=== PATIENT | female | born 1980 | race Two or more races ===

== ENCOUNTER 2021-04-08 10:36 | Inpatient (IN) | payer OTHER ==
[~2021-04-08] VITALS: Ht 160 cm; Wt 53.1 kg
[2021-04-08] MEDS ORDERED: GABAPENTIN100 M2 PO (11:25)
[2021-04-08] MEDS ORDERED: MEGESTROL ACETA40 MG PO (11:25)
[2021-04-08] MEDS ORDERED: CYMBALTA30 MG PO (12:32)
[2021-04-11] MEDS ORDERED: TRAM1TAB98 (09:05)
[2021-04-11] MEDS ORDERED: MILI 0.25-0.031 EACH (09:05)
[2021-04-12] MEDS ORDERED: CODE1TAB37 PO (08:51)
[2021-04-12] MEDS ORDERED: IBU600 MG PO (08:52)
== END 2021-04-12 11:41 | disposition home or self-care (01) | DRG 743 ==
LOC: O/R 04-11 05:37 → OB/GYN 04-11 09:44 → SURH 04-11 10:45 → OB/GYN 04-12 11:41
PROVIDERS: ADMIT Obstetrics & Gynecology; ATTEND Obstetrics & Gynecology
PROC: 0UQF7ZZ Repair Cul-de-sac, Via Natural or Artificial Opening (ICD-10-PCS; 2021-04-11)
PROC: 0USG7ZZ Reposition Vagina, Via Natural or Artificial Opening (ICD-10-PCS; 2021-04-11)
PROC: 0TJB8ZZ Inspection of Bladder, Via Natural or Artificial Opening Endoscopic (ICD-10-PCS; 2021-04-11)
PROC: 0UT97ZZ Resection of Uterus, Via Natural or Artificial Opening (ICD-10-PCS; principal; 2021-04-11 14:00)
DX: D25.1 Intramural leiomyoma of uterus (principal); D25.2 Subserosal leiomyoma of uterus; N92.1 Excessive and frequent menstruation with irregular cycle